=== PATIENT | female | born 1990 | race Caucasian/White ===

== ENCOUNTER 2016-12-12 16:46 | Emergency (ER) ==
[2016-12-12 17:03] VITALS: BP 107/70
[2016-12-12] MEDS ORDERED: ZOFRAN ODT PO ONE (17:48)
[2016-12-12] MEDS ORDERED: PHENERGAN IM ONE (17:48)
[2016-12-12 18:43] LABS: URINE CULTURE PL NEEDED? NO; URINE SOURCE CLEAN CATCH
[2016-12-12 19:36] LABS: BILIRUBIN URINE NEGATIVE (NEGATIVE); BLOOD URINE NEGATIVE (NEGATIVE); CLARITY CLEAR (CLEAR); COLOR YELLOW; GLUCOSE URINE NEGATIVE (NEGATIVE); LEUKOCYTES URINE NEGATIVE (NEGATIVE); NITRITE URINE NEGATIVE (NEGATIVE); PROTEIN URINE NEGATIVE (NEGATIVE); SP GRAVITY URINE 1.015; UROBILINOGEN URINE NORMAL
[2016-12-12 19:39] LABS: URINE EPITHELIAL CELLS <10 /HPF (<10)
[2016-12-12] MEDS ORDERED: TAMIFLU PO ONE (19:55)
--- NOTE | 2016-12-12 19:55 | PROVIDER DOCUMENTATION ---
HPI-General Adult - General Chief Complaint: Flu Symptoms Stated Complaint: FLU SX Time Seen by Provider: 12/12/16 17:40 Source: patient Allergies/Adverse Reactions: Patient Allergies Allergy/AdvReac Type Severity Reaction Status Date / Time No Known Allergies Allergy Verified 12/12/16 17:03 Home Medications: Home Medication List Medication Instructions Recorded Confirmed Last Taken Type Ondansetron Odt [Zofran 8Mg Odt] 8 mg PO Q8H PRN PRN #20 tablet 12/12/16 Unknown Rx Oseltamivir [Tamiflu] 75 mg PO BID #10 capsule 12/12/16 Unknown Rx Polyethylene Glycol 3350 [Miralax] 17 gm PO DAILY #14 powd.pack 12/12/16 Unknown Rx Promethazine [Phenergan] 25 mg PO Q6H PRN PRN #20 tablet 12/12/16 Unknown Rx - History of Present Illness -Gen Adult Nature of Presenting Problems: 26 y/o WF c/o cough, N/V, sore throat, fever x 1 day. Pt states that her fever has been up to 102 today. Denies diarrhea, abd. pain. States vomiting x 1. Reports several sick contacts with confirmed influenza. Denies vaccine. Cough is not productive. Review of Systems - Adult - REVIEW OF SYSTEMS - ADULT Constitutional: reports: see HPI, fever. denies: chills Eyes: reports: no symptoms reported. denies: blurred vision, double vision Ears, Nose, Mouth & Throat: reports: see HPI, throat pain. denies: ear pain, nose pain Cardiovascular: reports: no symptoms reported. denies: chest pain, palpitations Respiratory: reports: see HPI, cough. denies: shortness of breath Gastrointestinal: reports: see HPI, nausea, vomiting. denies: abdominal pain, constipation, diarrhea Genitourinary: reports: no symptoms reported. denies: dysuria, frequency Musculoskeletal: reports: no symptoms reported. denies: joint pain, joint swelling Integumentary: reports: no symptoms reported. denies: nail changes, rash Neurological: reports: no symptoms reported. denies: numbness, paresthesia Psychiatric: reports: no symptoms reported Endocrine: reports: no symptoms reported. denies: cold intolerance, heat intolerance Hematologic/Lymphatic: reports: no symptoms reported. denies: easy bruising, prolonged bleeding Allergic/Immunologic: reports: no symptoms reported All Other Systems: Reviewed and Negative Past History - Adult - PAST MEDICAL HISTORY-ADULT Review of Records: reports: Nursing Assessment Review, Medications Reviewed Physical Exam-General - PHYSICAL EXAM-ADULT Initial Vital Signs Reviewed: Yes - CONSTITUTIONAL General Appearance: alert, mild distress - EYES Eyes: pink conjunctivae - HEAD, EARS, NOSE, MOUTH & THROAT HENMT: normocephalic/atraumatic, moist mucous membranes - NECK Neck: supple, normal inspection - RESPIRATORY Respiratory: lungs clear, normal breath sounds. negative: crackles, rales, rhonchi, stridor, wheezing - CARDIOVASCULAR Cardiovascular: tachycardia. negative: bradycardia - GASTROINTESTINAL (ABDOMEN) Abdominal Exam: normal bowel sounds, non tender, soft - MUSCULOSKELETAL Back Exam: normal inspection Extremity: normal gait - SKIN Integumentary: normal color, normal turgor, warm/dry - NEUROLOGIC Neurologic: negative: aphasia - PSYCHIATRIC Psych/Mental Status: normal mood/affect, normal thought content, normal thought process, oriented x 3 Progress - XRAY 1 XRAY Study: Chest, Abdomen XRAY Interpretation: constipation, no PNA Departure - Departure Time of Disposition Order: 19:56 DIAGNOSIS: Exposure to influenza, Viral syndrome Constipation Qualifiers: Constipation type: unspecified constipation type Qualified Code(s): K59.00 - Constipation, unspecified Disposition: HOME 01 Certified Medical Emergency: Emergent Condition: Stable Additional Instructions: Take medications as directed. Follow up with PCP in 3-5 days for recheck. Drink plenty of fluids. Tylenol and motrin for fever. ED Follow Up Instructions: You have been treated by a care provider in the Emergency Department. These instructions are being provided to you so you can have an understanding of how to care for yourself upon discharge. Upon discharge from the Emergency Department, you are responsible for making arrangements for follow-up care by a physician of your choice. Take all prescribed medications as directed. Return to the Emergency Department immediately for any new or worsening symptoms. You may call the Physician Referral phone number at [phone] to obtain a list of Physicians who are taking new patients. Prescriptions: Polyethylene Glycol 3350 [Miralax] 17 gm PO DAILY #14 powd.pack Promethazine [Phenergan] 25 mg PO Q6H PRN PRN #20 tablet PRN Reason: Nausea Oseltamivir [Tamiflu] 75 mg PO BID #10 capsule Ondansetron Odt [Zofran 8Mg Odt] 8 mg PO Q8H PRN PRN #20 tablet PRN Reason: Nausea Referrals: Max Garg MD [STAFF PHYSICIAN] - Forms: Return to School/Parent Work Instructions: Influenza, Adult, [id number], Ondansetron tablets, Viral Infections, [id number], Constipation, Adult, Oseltamivir capsules, Promethazine tablets, Polyethylene Glycol powder Attestation - Physician/ NANETTE Attestation Patient care was provided by Advanced Practice Provider:: Yes Advanced Practice Provider:: Citlalli Henson Advanced Practice Provider documentation review:: The Mid-level provider documentation, treatment plan and medical decision making was reviewed by the physician who agrees with all treatment and medical decision making by the MLP.
--- NOTE | 2016-12-13 10:34 | Diag Imaging Result Document ---
PROCEDURE NAME: FLAT/UPRIGHT ABD/1 VIEW CHEST - 12/12/2016 SUPINE UPRIGHT ABDOMEN 1-VIEW CHEST: No comparison exam. FINDINGS: There is a moderate amount of retained fecal debris in the colon suggesting constipation. The bowel gas pattern otherwise appears nonspecific and nonobstructive. There is no free air identified. There are no unusual calcifications identified. Upright chest shows normal heart size. The lungs appear clear. No pleural effusion or pneumothorax seen. There is mild S-shaped thoracolumbar scoliosis noted. IMPRESSION: 1. Constipation. Nonspecific bowel gas pattern. 2. No evidence of acute cardiopulmonary disease. Mild scoliosis noted.
== END 2016-12-12 20:14 | disposition home or self-care (01) ==
LOC: P.ED 16:46
DX: B34.9 Viral infection, unspecified (principal); K59.00 Constipation, unspecified; R05 Cough; R11.2 Nausea with vomiting, unspecified; J02.9 Acute pharyngitis, unspecified; R50.9 Fever, unspecified; R00.0 Tachycardia, unspecified; Z20.89 Contact with and (suspected) exposure to other communicable diseases
CPT/HCPCS: 74022; 81001; 81025; 87804; 96372; J2550